=== PATIENT | male | born 1970 | race Caucasian/White ===

== ENCOUNTER → 2016-08-18 | Outpatient (CLI) | payer OTHER ==
[~2016-08-18] VITALS: Ht 177.8 cm; Wt 88.8 kg
[2016-08-18 13:13] VITALS: BP 135/84; PULSE 78; Ht 177.8 cm; Wt 88.8 kg
== END | disposition home or self-care (01) ==
LOC: C.NEUR 12:35
PROVIDERS: ATTEND Internal Medicine Pulmonary Disease
DX: R06.83 Snoring (principal); R53.83 Other fatigue; R06.81 Apnea, not elsewhere classified

== ENCOUNTER → 2016-08-26 | Outpatient (CLI) | payer OTHER ==
--- NOTE | 2016-08-27 06:11 | PAP/PSG TECHNICIAN REPORT ---
[facility] Machine Adjuster Helper Polysomnogram Report Study name: None Report date: 08/27/2016 Study date: 08/26/2016 Referring Physician: DR. GOTTI Name: CALI VILLA Interpreting Physician: Alvin Gotti M.D. Date of : 1970 Machine Adjuster Helper: Carter Wilkinson RPSAPRIL. Sex: Male Age: 46 StudyType: PSG Weight: 195 lbs 16 inches Height: 46 years, Height 5' 10" Neck Circum: BMI: 27.98 Medications: NONE NOTED Patient History PATIENT HAS HISTORY OF SNORING, FATIGUE, WITNESSED APNEA AND DAYTIME SLEEPINESS. HE IS HERE TODAY FOR AN EVALUATION FOR NIRMAL. ESS = 11 RM 6 Parameters Monitored NPSG: E1-M2, E2-M1, Fp1-M2, Fp2-M1, F3-M2, F4-M2, F4-M1, C3-M2, C4-M2, C4-M1, O1-M2, O2-M2, O2-M1, T3-M2, T4-M1, P3-M2, P4-M1, CHIN1, CHIN2, HR, EKG, Legs, PFLOW, SNOR, FLOW, CFLOW, Tidal Volume, THOR, ABDO, SpO2, PLTH, CPRESS, ETCO2 Wave, ETCO2, pH Sleep Architecture Sleep Stages Time at Lights Off 10:39:10 PM STAGES Time (min.) TST (%) Time at Lights On 5:36:40 AM Wake 87.0 -- Total Recording Time (TRT) 418.00 min. N1 24.0 7 Total Sleep Period (TSP) 393.5 min. N2 223.5 68 Total Sleep Time (TST) 330.5min. N3 30.5 9 Awake Time 87.5 min. REM 52.5 16 Wake after Sleep Onset 63.5 min. Sleep Efficiency (SE) 79 % Sleep Onset Latency (SUZANNE) 23.5 min. Number of Stage 1 Shifts None Awakenings 22 Stage Changes 75 Number of REM periods 3 REM 52.5 16 REM Latency 115.5 min. NREM 278.0 84 Body Position Analysis Supine Right Left Side Prone Vertical Total Sleep Time (min.) 77.8 83.5 210.7 294.28 0.0 0.0 Total Sleep Time (%) 11% 25% 64% 89 0% N/A% Total Sleep Time REM (min.) 0.0 0.0 52.5 None 0.0 0.0 Total Sleep Time NREM (min.) 36.2 83.5 158.2 None 0.0 0.0 Intermittent Wake (min.) 41.5 19.7 25.8 None 0.0 0.0 Total Sleep Period (%) 14% None None None None None Arousals Myoclonus (PLM) * Events Count Index Events Count Index Spontaneous 29 5 Events Awake (PLMW) 68 46.9 Respiratory 19 3.8 Events Asleep w/ Arousal (PLMA) 3 0.5 PLM 3 1 Events Asleep w/o Arousal (PLMS) 34 6.2 Snoring 13 2 Total Asleep 37 6.7 Total 64 12 Total 105 15 Respiratory Analysis * CA OA MA CH H RERA Total Count 0 1 0 0 30 18 31 Index 0.0 0.2 0.0 0 5.4 3 8.9 Mean Duration 0.0 20.0 0.0 0.00 21.4 15.1 19.0 Longest Duration 0.0 20.0 0.0 0.00 0.0 21.0 39.9 Respiratory Event Summary Total Supine ~Supine Right Left Prone REM NREM Apneas Count 1 1 0 0 0 N/A 0 1 Index 0.2 2 0 0.0 0.0 N/A 0 0 Hypopneas (4% Desat) Count 30 15 15 0 15 N/A 6 24 Index 5.4 24.9 3 0.0 4.3 N/A 6.9 5.2 Apneas & All Hypopneas Count 31 16 15 0 15 N/A 6 25 Index 5.6 27 3 0 4 N/A 6.9 5.4 Respiratory Events (Lapping Machine Set Up Operator+All Hyp+RERA) Count 31 19 30 3 27 N/A 6 25 Index 8.9 31 6 2.2 7.7 N/A 6.9 9.3 Respiratory Related Arousal Count 19 19 15 3 12 N/A 3 18 Index 3.8 10 3 2 3 N/A 3 4 Snoring Analysis Supine Right Left Prone REM NREM Total Snore duration 60.8 min Snores count 267 416 1,086 N/A 111 1,658 1,769 Snore mean duration 2.1 Sec Snores index 442 299 309 N/A 126.9 357.8 321.1 TST with snoring (%) 18.4% Desaturation Event Summary: Minimum %SpO2 Event Count Mean/Min/Max Duration(sec.) Desaturation Index % Time In Bed > 90 33 29.6 / 12.8 / 46.7 5.0 96.8 86 - 90 0 N/A 0.0 3.2 81 - 85 0 N/A 0.0 0.0 76 - 80 0 N/A 0.0 0.0 71 - 75 0 N/A 0.0 0.0 66 - 70 0 N/A 0.0 0.0 61 - 65 0 N/A 0.0 0.0 56 - 60 0 N/A 0.0 0.0 51 - 55 0 N/A 0.0 0.0 < 50 0 N/A 0.0 0.0 Total REM NREM Awake <50% 0.0 min. 0.0 min. 0.0 min. 0.0 min. 51 - 60% 0.0 min. 0.0 min. 0.0 min. 0.0 min. 61 - 70% 0.0 min. 0.0 min. 0.0 min. 0.0 min. 71 - 80% 0.0 min. 0.0 min. 0.0 min. 0.0 min. 81 - 90% 13.2 min. 0.1 min. 10.7 min. 2.3 min. 91 - 100% 395.7 min. 52.4 min. 265.3 min. 78.1 min. Average 93 93 93 94 Minimum SpO2 84 90 87 84 Desaturation Event Index 4.7 6.9 5.2 2.8 # Desat. Events below 89% 6 N/A 6 0 Time(%) with Saturation below 89% 0.3 0.0 0.1 0.2 Time(min.) with Saturation below 89% 1.2 0.0 0.6 0.6 Time (mins) REM (mins) NREM (mins) % of TST SpO2 Below 90% 16 2 N14 0.5 SpO2 Below 88% 2 0 0 0 Heart Rate Analysis Min (bpm) Max (bpm) Average (bpm) Awake 51 127 65 NREM 51 84 58 REM 53 81 64 Overall 51 84 59 Supplemental O2 Values Minimum O2 level: None Value Start Time End Time Machine Adjuster Helper Comments Mr. Villa slept in the right, left and supine positions. No cardiac arrhythmia noted. Leg movements noted. No bruxism noted. Snoring was noted and scored as a 4 on a scale of 1 through 5. (0=no snoring, 5=snoring loud enough to be heard through a closed door or down the [address] way) Mr. Villa awoke to use the restroom 1 time during the night. Mr. Villa stated I did not sleep as well as I do when I am in my own bed. The final report will be interpreted and signed by a sleep physician. The completed physician report will then be placed in the patient medical record. Therapy (cm H2O) 0 TIB (min.) 417.5 TST (min.) 330.5 Sleep Onset (min.) 23.5 REM Onset From Sleep (min.) 115.5 Sleep Efficiency % 79 Wakefulness (%) 21 Wakefulness (min.) 87.5 NREM 1 (%) 7 NREM 1 (min.) 24.0 NREM 2 (%) 68 NREM 2 (min.) 223.5 NREM 3 (%) 9 NREM 3 (min.) 30.5 REM (%) 16 REM (min.) 52.5 # Arousals 64 Arousal Index 12 # Snore 1,769 Snore Index 321.1 AHI 5.6 AHI Supine 27 AHI Non-Supine 3 NREM AHI 5.4 REM AHI 6.9 RDI 8.9 # Obstructive Apnea 1 # Central Apnea 0 # Mixed Apnea 0 # Hypopneas 30 RERAs 18 Total Respiratory Events 49 Time Below SpO2 89% (min.) 0.6 Mean NREM SpO2 (%) 93 Mean REM SpO2 (%) 93 Mean Sleep SpO2 (%) 93 Min NREM SpO2 (%) 87 Min REM SpO2 (%) 90 Position Supine (min.) 77.8 Position Non-supine (min.) 294.3 LM Index Sleep 6.7 LM Index NREM 7.1 LM Index REM 4.6 Mean Heart Rate (bpm) 59 Min Heart Rate (bpm) 51
--- NOTE | 2016-08-28 18:24 | POLYSOMNOGRAPH REPORT ---
CLINICAL DATA: A 46-year-old male with BMI of [address] Nichols and myself for evaluation of possible sleep apnea. He has loud snoring, witnessed apnea, fatigue, and fragmented sleep. He does have a positive family history of sleep apnea. His Marion sleepiness score is elevated at 11/24. SLEEP ARCHITECTURE: Total recording time was 418 minutes. Total sleep period was 393.5 minutes. Total sleep time was 330.5 minutes divided between 278 minutes of non-REM sleep and 52.5 minutes of REM sleep. Sleep onset latency was normal at 23.5 minutes. REM latency was 115.5 minutes. Sleep efficiency was 79%. Wake after sleep onset was elevated at 63.5 minutes. Sleep consisted of stage N1 7%, stage N2 68%, stage N3 9%, and REM 16%. AROUSAL DATA: 64 arousals were recorded for an index of 12 per hour. 29 were spontaneous. PLM DATA: 37 limb movements during sleep were noted for an index of 6.7 per hour with an arousal index of 0.5 per hour. RESPIRATORY DATA: Very mild sleep apnea was documented. The AHI was 5.6. The RDI was 8.9. There was 1 obstructive apneic episode, 20 seconds in duration. There were 30 hypopneas with a mean duration of 21.4 seconds. There were 18 respiratory effort related arousals. The longest duration of RERA was 21 seconds. OXIMETRY DATA: Very mild transient nocturnal hypoxemia was seen. The oxygen arabella was 87% during non-REM sleep. The mean saturation was 93%. Time below 88% was 2 minutes. EKG: Heart rates ranged from 51-84 beats per minute. No arrhythmias were noted. ANTIQUE REFINISHER'S COMMENTS: The patient slept in the right, left, and supine positions. Snoring was severe, rated 4 on a scale of 1 through 5. He awoke once to use the restroom. IMPRESSION: Very mild sleep apnea/hypopnea with an AHI of 5.6 and RDI of 8.9. RECOMMENDATIONS: The patient may benefit from weight loss, use of an oral appliance, or a repeat sleep study with CPAP. Clinical correlation is needed. [facility]ITAL[facility]ela
== END | disposition home or self-care (01) ==
LOC: C.NEUR 21:00
PROVIDERS: ATTEND Internal Medicine Pulmonary Disease
DX: R06.81 Apnea, not elsewhere classified (principal)

== ENCOUNTER → 2016-11-03 | Outpatient (CLI) | payer OTHER ==
--- NOTE | 2016-11-04 06:22 | PAP/PSG TECHNICIAN REPORT ---
[facility] Leaf Blender Polysomnogram Report Study name: None Report date: 11/04/2016 Study date: 11/03/2016 Referring Physician: DR. GOTTI Name: CALI VILLA Interpreting Physician: Alvin Gotti M.D. Date of : 1970 Leaf Blender: Rebecca Burrows [facility]. Sex: Male Age: 46 Study Type: PSG PAP Weight: 195 lbs 16 in Height: 46 years, Height 5' 10" Neck Circum: BMI: 27.98 Medications: NONE REPORTED Patient History 46 yr-old male here for a new CPAP treatment study. He was found to be positive for NIRMAL with an AHI of 5.6. His diagnostic study was on 08/26/16. He chose an AirFit F10 full face mask size medium from [employer]. The test was started on room air and 4 CMH2O. ETCO2 testing was not utilized during this study. Room 3 Parameters Monitored NPSG: E1-M2, E2-M1, Fp1-M2, Fp2-M1, F3-M2, F4-M2, F4-M1, C3-M2, C4-M2, C4-M1, O1-M2, O2-M2, O2-M1, T3-M2, T4-M1, P3-M2, P4-M1, CHIN1, CHIN2, HR, EKG, Legs, PFLOW, SNOR, FLOW, CFLOW, Tidal Volume, THOR, ABDO, SpO2, PLTH, CPRESS, ETCO2 Wave, ETCO2, pH Sleep Architecture Sleep Stages Time at Lights Off 10:50:30 PM STAGES Time (min.) TST (%) Time at Lights On 5:33:00 AM Wake 65.0 -- Total Recording Time (TRT) 402.50 min. N1 45.0 13 Total Sleep Period (TSP) 361.5 min. N2 204.5 61 Total Sleep Time (TST) 337.5min. N3 12.5 4 Awake Time 65.0 min. REM 75.5 22 Wake after Sleep Onset 24.0 min. Sleep Efficiency (SE) 84 % Sleep Onset Latency (SUZANNE) 41.0 min. Number of Stage 1 Shifts None Awakenings 26 Stage Changes 117 Number of REM periods 4 REM 75.5 22 REM Latency 129.5 min. NREM 262.0 78 Body Position Analysis Supine Right Left Side Prone Vertical Total Sleep Time (min.) 382.9 16.0 0.0 15.99 0.0 0.0 Total Sleep Time (%) 95% 5% 0% 5 0% N/A% Total Sleep Time REM (min.) 75.5 0.0 0.0 None 0.0 0.0 Total Sleep Time NREM (min.) 246.0 16.0 0.0 None 0.0 0.0 Intermittent Wake (min.) 61.4 3.6 0.0 None 0.0 0.0 Total Sleep Period (%) 95% None None None None None Arousals Myoclonus (PLM) * Events Count Index Events Count Index Spontaneous 49 9 Events Awake (PLMW) 43 39.7 Respiratory 6 1.2 Events Asleep w/ Arousal (PLMA) 11 2.0 PLM 11 2 Events Asleep w/o Arousal (PLMS) 57 10.1 Snoring 1 0 Total Asleep 68 12.1 Total 67 12 Total 111 17 Respiratory Analysis * CA OA MA CH H RERA Total Count 0 0 0 0 9 6 9 Index 0.0 0.0 0.0 0 1.6 1 2.7 Mean Duration 0.0 0.0 0.0 0.00 26.2 18.0 22.9 Longest Duration 0.0 0.0 0.0 0.00 0.0 20.9 40.3 Respiratory Event Summary Total Supine ~Supine Right Left Prone REM NREM Apneas Count 0 0 0 0 N/A N/A 0 0 Index 0.0 0 0 0.0 N/A N/A 0 0 Hypopneas (4% Desat) Count 9 9 0 0 N/A N/A 4 5 Index 1.6 1.7 0 0.0 N/A N/A 3.2 1.1 Apneas & All Hypopneas Count 9 9 0 0 N/A N/A 4 5 Index 1.6 2 0 0 N/A N/A 3.2 1.1 Respiratory Events (Food Assembler+All Hyp+RERA) Count 9 15 0 0 N/A N/A 4 5 Index 2.7 3 0 0.0 N/A N/A 4.0 2.3 Respiratory Related Arousal Count 6 15 0 0 N/A N/A 1 6 Index 1.2 1 0 0 N/A N/A 1 1 Snoring Analysis Supine Right Left Prone REM NREM Total Snore duration 10.4 min Snores count 431 0 N/A N/A 63 368 431 Snore mean duration 1.4 Sec Snores index 80 0 N/A N/A 50.1 84.3 76.6 TST with snoring (%) 3.1% Desaturation Event Summary: Minimum %SpO2 Event Count Mean/Min/Max Duration(sec.) Desaturation Index % Time In Bed > 90 16 27.4 / 9.0 / 46.8 2.4 99.6 86 - 90 0 N/A 0.0 0.4 81 - 85 0 N/A 0.0 0.0 76 - 80 0 N/A 0.0 0.0 71 - 75 0 N/A 0.0 0.0 66 - 70 0 N/A 0.0 0.0 61 - 65 0 N/A 0.0 0.0 56 - 60 0 N/A 0.0 0.0 51 - 55 0 N/A 0.0 0.0 < 50 0 N/A 0.0 0.0 Total REM NREM Awake <50% 0.0 min. 0.0 min. 0.0 min. 0.0 min. 51 - 60% 0.0 min. 0.0 min. 0.0 min. 0.0 min. 61 - 70% 0.0 min. 0.0 min. 0.0 min. 0.0 min. 71 - 80% 0.0 min. 0.0 min. 0.0 min. 0.0 min. 81 - 90% 1.5 min. 0.0 min. 1.5 min. 0.0 min. 91 - 100% 392.8 min. 75.5 min. 260.5 min. 56.8 min. Average 94 95 94 95 Minimum SpO2 89 91 89 91 Desaturation Event Index 2.4 4.0 2.1 1.8 # Desat. Events below 89% N/A N/A N/A N/A Time(%) with Saturation below 89% 0.0 0.0 0.0 0.0 Time(min.) with Saturation below 89% 0.0 0.0 0.0 0.0 Time (mins) REM (mins) NREM (mins) % of TST SpO2 Below 90% 3 N/A N3 0.0 SpO2 Below 88% 0 0 0 0 Heart Rate Analysis Min (bpm) Max (bpm) Average (bpm) Awake 54 127 72 NREM 54 90 65 REM 57 90 69 Overall 54 90 66 Supplemental O2 Values Minimum O2 level: None Value Start Time End Time Leaf Blender Comments Mr. Villa slept in the right and supine positions. No cardiac arrhythmias or PLMs noted. No bruxism noted. CPAP was initiated at +4 CMH2O and up-titrated to a level of +7 CMH2O, Cflex 2 which nearly eliminated all respiratory events and snoring. An AirFit F10 full face mask size medium from [employer] was used during titration He did not wake up to use the restroom during the night. Mr. Villa stated that he slept ok. The final report will be interpreted and signed by a sleep physician. The completed physician report will then be placed in the patient medical record. Therapy Event: Therapy (cm H20) 4 6 7 Total Time at Pressure (min.) 156.1 136.0 110.4 TST at Pressure (min.) 102.6 128.5 106.4 # Periods 1 1 1 Sleep Onset (min.) 41.0 0.0 0.0 REM Onset (min.) N/A 14.4 8.4 Sleep Efficiency % 65 94 96 Wakefulness (%) 34.3 5.5 3.6 Wakefulness (min.) 53.5 7.5 4.0 NREM 1 (%) 18.3 8.8 4.1 NREM 1 (min.) 28.5 12.0 4.5 NREM 2 (%) 46.5 50.4 57.4 NREM 2 (min.) 72.6 68.5 63.4 NREM 3 (%) 1.0 5.9 2.7 NREM 3 (min.) 1.5 8.0 3.0 REM (%) 0.0 29.4 32.2 REM (min.) 0.0 40.0 35.5 # Arousals 33 26 8 Arousal Index 19.3 12.1 4.5 # Snore 254 155 22 Snore Index 148.5 72.4 12.4 AHI 1.8 2.8 0.0 AHI Supine 1.8 3.1 0.0 AHI Non-Supine N/A 0.0 0.0 NREM AHI 1.8 1.4 0.0 REM AHI N/A 6.0 0.0 RDI 4.7 3.3 0.0 # Obstructive 0 0 0 # Central Ap 0 0 0 # Mixed 0 0 0 # Hypopneas 3 6 0 RERAS 5 1 0 Total Respiratory Events 8 7 0 Time Below SpO2 89.00% (min.) 0.0 0.0 0.0 Mean NREM SpO2 (%) 93 94 94 Mean REM SpO2 (%) N/A 95 95 Mean Sleep SpO2 (%) 93 94 95 Min NREM SpO2 (%) 89 90 91 Min REM SpO2 (%) N/A 91 92 Position Supine (min.) 102.6 117.8 101.1 Position Non-supine (min.) 0.0 10.7 5.3 LM Index Sleep 3.5 16.3 15.2 LM Index NREM 3.5 18.3 18.6 LM Index REM N/A 12.0 8.5 Mean Heart Rate (bpm) 66 67 64 Min Heart Rate (bpm) 57 55 54
--- NOTE | 2016-11-05 00:50 | POLYSOMNOGRAPH REPORT ---
CLINICAL DATA: A 46-year-old male with BMI of 28, referred by Dr. Nichols for a CPAP titration study. He has snoring and daytime fatigue. He had a sleep study which showed mild sleep apnea with an AHI of 5.6 on a diagnostic PSG dated 08/26/2016. He chose an AirFit F10 full-face mask size medium from [employer]. SLEEP ARCHITECTURE: Total sleep period was 361.5 minutes. Total sleep time was 337.5 minutes, divided between 262 minutes of non-REM sleep and 75.5 minutes of REM sleep. Sleep onset latency was delayed at 41 minutes. REM latency was 129.5 minutes. Sleep efficiency was 84%. Wake after sleep onset was 24 minutes. Sleep consisted of stage N1 13%, stage N2 61%, stage N3 4%, and REM 22%. AROUSAL DATA: 67 arousals were recorded for an index of 12 per hour. 49 were spontaneous. PLM DATA: 68 limb movements during sleep were noted for an index of 12.1 per hour with arousal index of 2 per hour. RESPIRATORY DATA: The AHI was 1.6. There were 9 hypopneic episodes. The mean duration of hypopnea was 26.2 seconds. OXIMETRY DATA: No hypoxemia was seen. Oxygen arabella was 89%. Mean saturation was 94%. EKG: Heart rates ranged from 54-90 beats per minute. No arrhythmias were noted. ART DEPARTMENT HEAD'S COMMENTS: The patient slept in the right and supine positions. CPAP was started and titrated up to 7 cm of water pressure. At this final pressure setting, the patient slept for 106.4 minutes with an AHI of 0. IMPRESSION: Mild sleep apnea/hypopnea corrected with CPAP 7 cm of water pressure, C-Flex 2, AirFit F10 full-face mask size medium from [employer]. RECOMMENDATIONS: The patient could be started on the above noted treatment regimen and seen back in followup within 90 days to document efficacy and compliance. [facility]
== END | disposition home or self-care (01) ==
LOC: C.NEUR 21:00
PROVIDERS: ATTEND Family Medicine
DX: G47.30 Sleep apnea, unspecified (principal)